=== PATIENT | male | born 1980 | race Hispanic/Latino ===

== ENCOUNTER 2018-08-14 11:56 | Day surgery (SDC) | payer OTHER ==
[2018-08-14] MEDS ORDERED: NACL 0.9% 1000 ML 1,000 ML IV SCH (13:00)
[2018-08-14] MEDS ORDERED: DIPRIVAN 10 MG/ML IV ONE (14:02)
[2018-08-14] MEDS ORDERED: VERSED ONE (14:02)
--- NOTE | 2018-08-14 14:04 | Anesthesia Day of Surgery ---
Anesthesia Day of Surgery - Day of Surgery Patient Examined: Yes Patient H&P Reviewed: Yes Patient is NPO: Yes Beta Blockers: No
--- NOTE | 2018-08-14 14:04 | Anesthesia Consultation ---
Anesthesia Consult and Med Hx Date of service: 08/14/18 - Airway Anesthetic Teeth Evaluation: Good ROM Head & Neck: Adequate Mental/Hyoid Distance: Adequate Mallampati Class: Class II Intubation Access Assessment: Good - Pulmonary Exam CTA: No - Cardiac Exam Cardiac Exam: No Murmur - Pre-Operative Health Status ASA Pre-Surgery Classification: ASA3 Proposed Anesthetic Plan: MAC - Pulmonary Hx Smoking: No Hx Asthma: No Hx Respiratory Symptoms: No SOB: No COPD: No Home Oxygen Therapy: No Hx Pneumonia: No Hx Sleep Apnea: No - Cardiovascular System Hx Hypertension: No Hx Coronary Artery Disease: No Hx Heart Attack/AMI: No Hx Angina: No - Endocrine Hx Non-Insulin Dependent Diabetes: Yes
[2018-08-14] MEDS ORDERED: SUBLIMAZE ONE (14:09)
--- NOTE | 2018-08-14 14:20 | Operative Report ---
Operative Report Operative Report: Procedure: Esophagogastroduodenoscopy with multiple mucosal biopsies Attending physician: Evaristo Cedillo MD Planting Material Unloader: Evaristo Cedillo MD Indication: Patient is a 38-year-old male who presented with a history of dysphagia, heartburn and indigestion with epigastric pain. An upper endoscopy is done to assess patient so that treatment may be directed based on the findings. Consent: Informed consent was obtained after advising the patient and family regarding nature of this procedure, its indications, potential benefits as well as possible complications including but not limited to bleeding perforation and adverse reaction to medication, infection as well as other cardiopulmonary complications. An informed written and verbal consent was then obtained after due opportunity was provided for questions and answers. Monitoring: Patient was monitored continuously with pulse oximetry and electrocardiographic recordings as well as blood pressure recordings. Vital signs remained stable throughout this procedure with no untoward events. Preoperative assessment: Patient was assessed immediately prior to this procedure for capacity to tolerate monitored anesthesia care and moderate sedation as well as general anesthesia. Patient's ASA classification is 2, Mallampati class is 2, Hyomental distance is 3. Instrument: Pencil You In video endoscope Medications: Propofol given intravenously in divided doses. For details please refer to anesthesia records. Description of procedure: Patient was placed in the left lateral decubitus position after achieving sedation, the endoscope was introduced into the esophagus under direct vision. It was then advanced beyond the esophagus into the stomach and then beyond the stomach into the duodenum and to the second portion of the duodenum. It was subsequently withdrawn with careful inspection of all mucosal surfaces with the following findings. Findings: Z line was irregular at 40 cm. There was mild gastric antral erythema with surrounding edema. Biopsies of the antrum were obtained for histopathology, to rule out microscopic disease. The duodenum was normal to second portion. Impression: Irregular Z line Gastric antral erythema Plan: Follow pathology report. Direct additional treatment based on the pathology report.
--- NOTE | 2018-08-14 14:20 | Discharge Summary ---
Short Stay Discharge Plan Activity: advance as tolerated Weight Bearing Status: Weight Bear as Tolerated Diet: regular Follow up with: ANNABELLA GRIFFIN MD [Other] - 7 Days
[2018-08-14 14:50] VITALS: BP 122/79
== END 2018-08-14 14:59 | disposition home or self-care (01) ==
LOC: GIO 11:56 → EDSEX 11:56 → GIO 14:59
PROVIDERS: ATTEND Internal Medicine Gastroenterology
DX: R13.10 Dysphagia, unspecified (principal); R10.13 Epigastric pain; K21.0 Gastro-esophageal reflux disease with esophagitis; E11.9 Type 2 diabetes mellitus without complications; Z79.899 Other long term (current) drug therapy; Z87.891 Personal history of nicotine dependence; Z98.890 Other specified postprocedural states
CPT/HCPCS: 43239; 82962; 88305; 88342; J2250; J2704; J3010; J7030

== ENCOUNTER 2020-10-31 06:12 | Day surgery (SDC) | payer OTHER ==
[2020-10-29 10:42] LABS: Hematocrit 41.8 % (35.5-45.6); Hemoglobin 14.4 gm/dl (11.8-15.2); Mean Corpuscular HGB Conc 35 % (32-34); Mean Corpuscular Volume 89 fl (84-94); Platelet Count 218 K/mm3 (140-440); Red Blood Count 4.68 M/mm3 (3.65-5.03); Red Cell Distribution Width 12.8 % (13.2-15.2)
--- NOTE | 2020-10-29 10:57 | Anesthesia Consultation ---
Anesthesia Consult and Med Hx Date of service: 10/31/20 - Airway Anesthetic Teeth Evaluation: Chipped ROM Head & Neck: Adequate Mental/Hyoid Distance: Adequate Mallampati Class: Class II Intubation Access Assessment: Good - Pre-Operative Health Status ASA Pre-Surgery Classification: ASA2 Proposed Anesthetic Plan: General - Pulmonary Hx Smoking: Yes (STOPPED 2006) Hx Asthma: No Hx Respiratory Symptoms: No SOB: No COPD: No Home Oxygen Therapy: No Hx Pneumonia: No Hx Sleep Apnea: No (BINDU [place] SCREEN LOW RISK) - Cardiovascular System Hx Hypertension: No Hx Coronary Artery Disease: No Hx Heart Attack/AMI: No Hx Angina: No - Central Nervous System Hx Back Pain: Yes (CHRONIC) Hx Psychiatric Problems: Yes (Depression) - Gastrointestinal Hx Gastroesophageal Reflux Disease: No - Endocrine Hx Insulin Dependent Diabetes: Yes Hx Non-Insulin Dependent Diabetes: Yes - Hematic Hx Anemia: No Hx Sickle Cell Disease: No - Other Systems Hx Substance Use: Yes (MARIJUANA 2-3X PER WEEK) Hx Cancer: No Hx Obesity: No
[2020-10-29 11:00] LABS: Blood Urea Nitrogen 13 mg/dL (9-20); Calcium 9.4 mg/dL (8.4-10.2); Hemolysis Index 6
[2020-10-29 11:01] LABS: BUN/Creatinine Ratio 19
[~2020-10-31 06:12] MED LIST: ACETAMINOPHEN 500 MG TAB PO NR; CELECOXIB 200 MG CAP PO NR; LACTATED RINGERS 1,000 ML IV SCH; MAGNESIUM OXIDE 400 MG TAB PO NR; ceFAZolin/Water 2 GM/20 ML 2 GM/20 ML SYRINGE IV NR
[2020-10-31] MEDS ORDERED: BACTERIOSTATIC SODIUM CHLORIDE 0.9% 30 ML VIAL INFILTRATI ONE (06:15)
[2020-10-31] MEDS: MIDAZOLAM 2 MG/2 ML INJ IV NR ×2 (06:55→07:20)
[2020-10-31] MEDS ORDERED: KETAMINE/STERILE WATER 50 MG/ML SYRINGE ONE ×2 (07:04→07:41)
[2020-10-31] MEDS ORDERED: propofoL 200 MG/20 ML VIAL IV ONE (07:05)
[2020-10-31] MEDS ORDERED: MAGNESIUM SULFATE 2 GM/50 ML BAG IV ONE ×2 (07:17→07:20)
--- NOTE | 2020-10-31 07:18 | Anesthesia Day of Surgery ---
Anesthesia Day of Surgery - Day of Surgery Patient Examined: Yes Patient H&P Reviewed: Yes Patient is NPO: Yes
[2020-10-31] MEDS ORDERED: LIDOCAINE 1%/EPINEPHRINE 1:100,000 VIAL (20 ML) INFILTRATI ONE ×2 (07:23→09:34)
[2020-10-31] MEDS ORDERED: THROMBIN (RECOMBINANT) 5,000 UNIT VIAL TP ONE ×2 (07:24→08:50)
[2020-10-31] MEDS ORDERED: GELATIN SPONGE SIZE 100 TP ONE ×2 (07:24→08:50)
[2020-10-31] MEDS ORDERED: VANCOMYCIN 1000 MG INJ ONE (07:26)
[2020-10-31] MEDS ORDERED: SODIUM CHLORIDE P/F VIAL 10 ML 10 ML ONE (07:27)
--- NOTE | 2020-10-31 07:45 | History and Physical Report ---
History of Present Illness Date of examination: 10/31/20 Chief complaint: Back pain History of present illness: Pastora Richardson is a 40 y/o Male w/ history of chronic recalcitrant back and leg pain. He presents to the clinic for further evaluation of his low back pain. He reports bilateral lower extremity radiculopathy despite conservative measures. Past History Past Medical History: No medical history Past Surgical History: No surgical history Social history: no significant social history Family history: no significant family history Medications and Allergies Allergies Allergy/AdvReac Type Severity Reaction Status Date / Time No Known Allergies Allergy Verified 08/14/18 12:16 Home Medications Medication Instructions Recorded Confirmed Last Taken Type Gabapentin 800 mg PO TID 08/14/18 10/31/20 10/31/20 04:30 History Lantus 50 units SUB-Q HS 08/14/18 10/27/20 10/30/20 History NovoLOG 100 UNITS/ML VIAL 14 units SUB-Q TID 08/14/18 10/27/20 10/30/20 History Buprenorphine HCl [Belbuca] 450 mcg BC BID 10/27/20 10/27/20 10/30/20 History Cyclobenzaprine [Flexeril] 10 mg PO BID 10/27/20 10/27/20 10/30/20 History DULoxetine [Cymbalta] 30 mg PO BID 10/27/20 10/27/20 10/30/[address] [Linsey Rodríguez] 75 mg PO BID 10/27/20 10/27/20 10/30/20 History Active Meds: Active Medications Acetaminophen (Acetaminophen 500 Mg Tab) 1,000 mg PO ONCE NR Stop: 10/31/20 20:00 Last Admin: 10/31/20 06:45 Dose: 1,000 mg Documented by: Celecoxib (Celecoxib 200 Mg Cap) 400 mg PO PREOP NR Stop: 10/31/20 20:00 Last Admin: 10/31/20 06:45 Dose: 400 mg Documented by: Hydromorphone HCl (Hydromorphone 1 Mg/1 Ml Inj) 0.25 mg IV Q10MIN PRN PRN Reason: Pain, Moderate (4-6) Stop: 10/31/20 17:00 Hydromorphone HCl (Hydromorphone 1 Mg/1 Ml Inj) 0.5 mg IV Q10MIN PRN PRN Reason: Pain , Severe (7-10) Cefazolin Sodium (Ancef/Sterile Water 2 Gm/20 Ml) 2 gm in 20 mls @ 80 mls/hr IV PREOP NR; Protocol Stop: 10/31/20 23:59 Lactated Ringer's (Lactated Ringers) 1,000 mls @ 125 mls/hr IV DIRECT LA Stop: 10/31/20 23:00 Last Admin: 10/31/20 06:55 Dose: 125 mls/hr Documented by: Magnesium Oxide (Magnesium Oxide 400 Mg Tab) 400 mg PO ONCE NR Stop: 10/31/20 23:00 Last Admin: 10/31/20 06:45 Dose: 400 mg Documented by: Midazolam HCl (Midazolam 2 Mg/2 Ml Inj) 2 mg IV PREOP NR Stop: 10/31/20 23:59 Last Admin: 10/31/20 07:20 Dose: 2 mg Documented by: Ondansetron HCl (Ondansetron 4 Mg/2 Ml Inj) 4 mg IV ONCE PRN PRN Reason: Nausea And Vomiting Review of Systems All systems: negative (what is indicated in the HPI) Exam - Physical Exam Narrative exam: seen and examined no acute distress NC/AT RRR breathing non-labored abdomen soft no cyanosis or clubbing A&Ox3 CNII-XII intact motor strength full throughout sensation intact reflexes +2 - Constitutional Vitals: Temp Pulse Resp BP Pulse Ox 98 F 93 H 16 138/93 100 10/29/20 09:50 10/29/20 09:50 10/31/20 06:45 10/29/20 09:50 10/29/20 09:50 Results - Labs CBC & Chem 7: 10/29/20 00:01 10/29/20 00:01 Labs: Abnormal lab results 10/31/20 Range/Units 07:05 POC Glucose 177 H (70-105) mg/dL Assessment and Plan 40 y/o M w/ chronic lumbosacral radiculitis despite conservative measures -to OR for thoracic laminectomy for spinal cord stimulator placement
[2020-10-31] MEDS ORDERED: ONDANSETRON 4 MG/2 ML INJ IV PRN (08:00)
[2020-10-31] MEDS ORDERED: HYDROmorphone 1 MG/1 ML INJ IV PRN (08:00)
[2020-10-31] MEDS ORDERED: ePHEDrine SULFATE 50 MG/1 ML INJ ONE (09:03)
[2020-10-31] MEDS ORDERED: ROCURONIUM 50 MG/5 ML INJ IV ONE (09:07)
[2020-10-31] MEDS ORDERED: LIDOCAINE MPF (2%) 20 MG/1 ML VIAL 5 ML ONE (09:07)
[2020-10-31] MEDS ORDERED: GLYCOPYRROLATE 0.4 MG/2 ML INJ ONE (09:07)
[2020-10-31] MEDS ORDERED: SUCCINYLCHOLINE CHLORIDE 200 MG/10 ML INJ MDV ONE (09:07)
[2020-10-31] MEDS ORDERED: BUPIVACAINE/PF (0.25%) 2.5 MG/ML 30 ML VIAL INFILTRATI ONE ×2 (09:38→09:43)
[2020-10-31] MEDS ORDERED: ONDANSETRON 4 MG/2 ML INJ ONE (09:46)
[2020-10-31] MEDS ORDERED: dexAMETHasone 20 MG/5 ML VIAL ONE (09:46)
[2020-10-31] MEDS ORDERED: BACITRACIN ZINC OINT 28.4 GM TP ONE ×2 (09:48→10:00)
--- NOTE | 2020-10-31 10:23 | Post Operative Note ---
Pre-op diagnosis: Failed back syndrome Post-op diagnosis: same Findings: SCS electrodes placed and appropriate location confirmed Procedure: T10 laminectomy for placement of spinal cord stimulator Anesthesia: GETA Surgeon: NOLA CEBALLOS II Estimated blood loss: minimal Pathology: none Condition: stable Disposition: PACU
[2020-10-31] MEDS: HYDROmorphone 1 MG/1 ML INJ IV PRN ×5 (10:30→11:25)
--- NOTE | 2020-10-31 10:50 | XRay Report ---
THORACIC SPINE 2 VIEWS INDICATION: LUMBOSACRAL RADICULITIS, BACK PAIN. COMPARISON: None. IMPRESSION: 0.2 minutes of fluoroscopy time was provided by radiology during thoracic neurostimulato r placement. 3 fluoroscopic images of the lower thoracic spine are presented demonstrating stimulator placement with its distal tip near the level of T8-9. No acute osseous abnormality is detected. Pl ease correlate with the procedural report as needed. Signer Name: Beny Morgan Jr, MD Signed: 10/31/2020 10:45 AM Workstation Name: [id number]
[2020-10-31] MEDS ORDERED: MEPERIDINE 25 MG/1 ML INJ ONE (11:40)
[2020-10-31] MEDS ORDERED: diphenhydrAMINE 50 MG/ML VIAL ONE (11:42)
[2020-10-31 13:54] VITALS: BP 121/69
--- NOTE | 2020-10-31 15:55 | Post Anesthesia Evaluation ---
- Post Anesthesia Evaluation Patient Participated: Yes Airway Patent: Yes Stable Respiratory Function: Yes Nausea/Vomiting: No Temp > 96.8F: Yes Pain Manageable: Yes Adequeate Hydration: Yes Anesthesia Complications: No Block Receding Appropriately: Not Applicable Patient on Ventilator: No
--- NOTE | 2020-11-01 02:15 | Operative Report ---
DATE OF SURGERY: 10/31/2020 PREOPERATIVE DIAGNOSES: 1. Failed back syndrome. 2. Lumbosacral radiculitis. POSTOPERATIVE DIAGNOSES: 1. Failed back syndrome. 2. Lumbosacral radiculitis. PROCEDURE PERFORMED: 1. T10 laminectomy for placement of spinal cord stimulator paddle. 2. Use of intraoperative nerve monitoring. SURGEON: Meño Quiñonez M.D. INSPECTOR CHIEF: None. ANESTHESIA: General endotracheal anesthesia. BLOOD LOSS: Minimal. COMPLICATIONS: None apparent. DISPOSITION: Stable to PACU. INDICATIONS OF PROCEDURE: The patient is a pleasant 40-year-old male with a history of failed back syndrome, having undergone a lumbar laminectomy by another surgeon. He reports persistent bilateral lower extremity pain, which significantly affects his quality of life. His spinal cord stimulator trial resulted in an approximate 80 % improvement in his pain. Based on these results, I offered him a permanent spinal cord stimulator placement. I reviewed all potential complications, risks and benefits of the operation. Mr. Richardson agreed to proceed. DESCRIPTION OF PROCEDURE: The patient was taken to the operating theater by Anesthesia. He was intubated without difficulty. He was positioned prone on a Jason frame. All pressure points were padded to prevent peripheral nerve injury. Eyes were taped shut after lubrication to prevent corneal abrasion. The thoracic and lumbar spine were prepped and draped in the usual sterile fashion. The location of the thoracic incision was determined with the use of AP fluoroscopy. Theh skin was infiltrated with 1% lidocaine with epinephrine. The skin was opened with a #10 scalpel blade. Further dissection was performed with the electrosurgical generator of Joey Cheek. The spinous processes of T9 and T10 were exposed. The lamina of T10 was exposed in subperiosteal dissection. A self-retaining retractor was utilized to maintain exposure.Next, using a 6 mm round nubia bur, a T10 laminectomy was performed. The ligament was removed with 2-0 a 3-0 Kerrison rongeurs. A Oxford elevator was used to access the epidural space in preparation for a thoracic paddle electrode insertion. After the laminectomy had been performed, a Wundrbar epidural paddle was inserted into the dorsal epidural space without resistance to the midpoint of the T8-9 disc space. AP fluoroscopy was utilized to confirm adequate placement. The electrode extensions were secured with a 2-0 silk stitch. A horizontal generator pocket incision was created with a #10 scalpel blade. Further dissection was performed with the electrosurgical generator of Joey Cheek. Undermining was performed with blunt dissection and electrosurgical generator of Joey Cheek. A tunneling device was passed from the right lower lumbar incision to the thoracic incision. The electrode cables were tunneled to the generator site. The electrode extensions were connected to the generator and secured with the screwdriver. All impedances were checked and verified. The generator was tucked into the generator pocket in preparation for closure. Both incisions were copiously irrigated with saline. In the thoracic incision, the muscle and fascia were closed with 0 polyglactin synthetic absorbable suture. The dermis was closed with 2-0 polyglactin synthetic absorbable suture in an inverted fashion. The skin was re-approximated with kartik. In the right lumbar generator pocket, the pocket was closed with 2-0 polyglactin synthetic absorbable suture. The dermis was closed with a 2-0 polyglactin synthetic absorbable suture in an inverted fashion. The skin was then re-approximated with kartik. Both incisions were cleaned with saline-soaked gauze and dried. The incision was coated with antibiotic ointment and covered with a sterile dressing. There were no neuromonitoring changes throughout the duration of the operation. The patient was transferred to anesthesia where he was returned to the supine position and extubated without delay. He was transferred to the PACU in stable condition. TID: [id number] RECEIPT: [id number] MARANDA/TANYA/NICO HENDRICKSON
== END 2020-10-31 13:20 | disposition home or self-care (01) ==
LOC: OR 06:12
PROVIDERS: ATTEND Psychiatry & Neurology Neurology
DX: M54.17 Radiculopathy, lumbosacral region (principal); E11.9 Type 2 diabetes mellitus without complications; F32.9 Major depressive disorder, single episode, unspecified; M96.1 Postlaminectomy syndrome, not elsewhere classified; Z79.899 Other long term (current) drug therapy; Z87.891 Personal history of nicotine dependence; Z20.822 Contact with and (suspected) exposure to COVID-19; Z98.890 Other specified postprocedural states
CPT/HCPCS: 36415; 63655; 63685; 72070; 80048; 82962; 85027; 86850; 86900; 86901; A4649; C1778; J0330; J0690; J1100; J1170; J1200; J2175; J2250; J2405; J2704; J3370; J3475; J3490; J7120; U0003